=== PATIENT | male | born 1960 | race Caucasian/White ===

== ENCOUNTER 2020-02-24 12:22 | Outpatient (CLI) | payer OTHER ==
--- NOTE | 2020-02-24 13:15 | CT ---
EXAM: CT calcium score HISTORY: Hypertriglyceridemia COMPARISON: None TECHNIQUE: Multiple contiguous axial images were obtained a CT of the heart without contrast. FINDINGS: The CT images show no suspicious pulmonary nodules. No hilar or mediastinal lymphadenopathy are seen. The patient's total Agatston calcium score is 12. IMPRESSION: Mild coronary atherosclerosis is present. There is likely mild or minimal coronary stenos is. A mild risk of having coronary artery disease exists.
== END 2020-02-24 12:23 | disposition home or self-care (01) ==
LOC: BICCT 12:22
PROVIDERS: ATTEND Family Medicine
DX: E78.1 Pure hyperglyceridemia (principal); I25.10 Atherosclerotic heart disease of native coronary artery without angina pectoris
CPT/HCPCS: 75571